=== PATIENT | female | born 1940 | race Caucasian/White ===

== ENCOUNTER 2017-04-23 08:24 | Outpatient (CLI) | payer BC ==
--- NOTE | 2017-04-23 10:48 | CT ---
CT ABDOMEN AND PELVIS WITH IV CONTRAST: Date: 04-23-17 Provided Clinical History: Abnormal prior CT scan. FINDINGS: Comparison is made with the CT of the abdomen performed at [facility], 01-01-17. The visualized lung bases are free of significant opacity. The liver, spleen, pancreas, kidneys and adrenal glands demonstrate an unremarkable CT appearance. There is no bowel dilatation, free fluid or lymph node enlargement apparent. Minimal increased densit y involving the central small bowel mesenteric fat with occasional non-enlarged associated lymph node s again noted, without significant change with respect to the prior study. Occasional atherosclerotic vascular calcifications are seen. The osseous structures demonstrate no co ncerning osteoblastic or osteolytic lesions. IMPRESSION: Stable nonspecific patchy increased density to the central small bowel mesenteric fat. POS: [facility]
== END 2017-04-23 08:25 | disposition home or self-care (01) ==
LOC: CT 08:24
PROVIDERS: ATTEND Internal Medicine Gastroenterology
DX: R93.3 Abnormal findings on diagnostic imaging of other parts of digestive tract (principal)
CPT/HCPCS: 74177